=== PATIENT | male | born 1945 | race Caucasian/White ===

== ENCOUNTER 2019-06-02 09:02 | Inpatient (IN) | payer MEDICARE ==
[2019-05-25 10:24] LABS: BASOPHILS % (AUTO) 0.2 % (0-1); LYMPHOCYTES # (AUTO) 0.7 X10'3 (1.1-4.8); LYMPHOCYTES % (AUTO) 27.1 % (21-51); MEAN CORPUSCULAR HEMOGLOBIN 29.3 PG (27.0-31.0); MEAN CORPUSCULAR HGB CONC 33.7 g/dL (33.0-36.5); MEAN PLATELET VOLUME 8.1 FL (7.4-10.4); MONOCYTES # (AUTO) 0.5 X10'3 (0-0.9); NEUTROPHILS # (AUTO) 1.4 X10'3 (1.8-7.7); NEUTROPHILS % (AUTO) 52.7 % (42-75); PRE OP HEMATOCRIT 39.3 % (42.0-52.0); PRE OP HEMOGLOBIN 13.2 g/dL (14.0-17.9); PRE OP PLATELET COUNT 158 X10'3 (140-440); RED BLOOD COUNT 4.52 X10'6 (4.70-6.10); RED CELL DISTRIBUTION WIDTH 13.9 % (11.5-14.5)
[2019-05-25 10:31] LABS: ALBUMIN 4.2 G/DL (3.4-5.0); ALBUMIN/GLOBULIN RATIO 1.2 (1.1-1.5); ALKALINE PHOSPHATASE 58 IU/L (46-116); BLOOD UREA NITROGEN 11 MG/DL (7-18); BUN/CREATININE RATIO 12.9 (5.4-32.0); CALCIUM 8.9 MG/DL (8.5-10.1); CHLORIDE 106 MMOL/L (99-107); CREATININE 0.85 MG/DL (0.60-1.10); PRE OP ALT 53 U/L (30-65); PRE OP ANION GAP 6 (8-16); PRE OP AST 35 U/L (10-37); PRE OP BILIRUB, TOTAL 0.6 MG/DL (0.0-1.0); PRE OP GLUCOSE 105 MG/DL (70-104); PRE OP POTASSIUM 4.4 MMOL/L (3.4-5.1); PRE OP SODIUM 140 MMOL/L (135-145); TOTAL CARBON DIOXIDE 27.7 MMOL/L (24-32); TOTAL PROTEIN 7.6 G/DL (6.4-8.2); eGFR 88 ML/MIN
[2019-05-25 11:40] LABS: TOTAL CELLS COUNTED 100
[2019-05-25 11:41] LABS: PLATELET ESTIMATE NORMAL
[~2019-06-02] VITALS: Ht 180.3 cm; Wt 85.3 kg
[2019-06-02] VITALS (16 sets, daily range): BP systolic 90–131; BP diastolic 47–87
[~2019-06-02 09:02] MED LIST: AMLO5TAB16 PO; LOSA25TA41 PO; TRAM50TA2 PO
[2019-06-02] MEDS ORDERED: VANCOMYCIN INJ 1000 MG in NORMAL SALINE 250ml IV.SOLN IV ONE (10:00)
[2019-06-02] MEDS ORDERED: ringers solution, lacted 1,000 ML IV SCH ×2 (10:00→16:15)
[2019-06-02] MEDS ORDERED: cefazolin/dext.iso 2gm/100 ML IV ONE (10:00)
[2019-06-02] MEDS ORDERED: tranexamic acid inj. 850 MG in normal saline 100ml IV soln 100 ML IV ONE ×3 (10:00→20:45)
[2019-06-02] MEDS ORDERED: famotidine 20mg tablet PO ONE (10:00)
[2019-06-02] MEDS ORDERED: fentaNYL/PF 50MCG/1 ML 2ML syringe ONE (14:30)
[2019-06-02] MEDS ORDERED: midazolam 2 mg/2 ml injection ONE (14:31)
[2019-06-02] MEDS ORDERED: ROPIVAcaine 0.5% (5mg/ml) 30ml vial ONE ×2 (14:33→14:48)
[2019-06-02] MEDS ORDERED: dexamethasone sod phosphate 4mg/ml inj. ONE (14:33)
[2019-06-02] MEDS ORDERED: ondansetron/PF 4mg/2ml inj ONE (14:34)
[2019-06-02] MEDS ORDERED: ketorolac trometh. 30mg/ml inj. ONE (14:48)
[2019-06-02] MEDS ORDERED: ePHEDrine 50MG/ML INJ. ONE (15:25)
[2019-06-02] MEDS ORDERED: sevoflurane 250ml liquid IH ONE (15:25)
[2019-06-02] MEDS ORDERED: propofol 10mg/ml 20ml vial IV ONE (15:25)
[2019-06-02] MEDS ORDERED: fentaNYL/PF 50MCG/1 ML 2ML syringe IV PRN ×2 (16:15)
[2019-06-02] MEDS ORDERED: hydrALAZINE 20mg/ml inj. IV PRN (16:15)
[2019-06-02] MEDS ORDERED: morphine 4 MG/ML inj SYRINge IV PRN ×2 (16:15)
[2019-06-02] MEDS ORDERED: ondansetron/PF 4mg/2ml inj IV PRN ×2 (16:15→17:45)
[2019-06-02] MEDS ORDERED: ROPIVAcaine 0.2%/PF PAIN PUMP 400 ML IJ SCH (16:15)
[2019-06-02] MEDS ORDERED: enalaprilat dihydrate 2.5mg/2ml vial IV PRN (16:15)
[2019-06-02] MEDS ORDERED: acetaminophen 1,000mg/100ml IV 100 ML IV ONE (17:20)
[2019-06-02] MEDS ORDERED: meperidine/PF 50mg/ml syringe ONE (17:42)
[2019-06-02] MEDS ORDERED: HYDROmorphone 1 mg/ml syringe IV PRN (17:45)
[2019-06-02] MEDS ORDERED: magnesium hydroxide 30ml (MOM) UD suspension PO PRN (17:45)
[2019-06-02] MEDS ORDERED: diphenhydrAMINE 25mg capsule PO PRN ×2 (17:45)
[2019-06-02] MEDS ORDERED: bisacodyl 10mg suppository rectal RC PRN (17:45)
[2019-06-02] MEDS ORDERED: oxyCODONE IR 5mg (immed. release) tablet PO PRN ×2 (17:45)
[2019-06-02] MEDS ORDERED: HYDROmorphone inj. 0.5 MG/0.5 ML DISP.SYRIN IV PRN (17:45)
[2019-06-02] MEDS ORDERED: acetaminophen 325mg tablet PO PRN (17:45)
--- NOTE | 2019-06-02 17:55 | NUR ---
Received from OR via BED, accompanied by Anesthesiologist DR ACUNA and report given by Anesthesiologist. PT DROWSY, NO S/S OF DISTRESS/DISCOMFORT, LEFT SHOULDER W/ISLAND DRSG CDI, ICE PACK, SHOULDER WRAP, FINGERS PWD. Addendum: 06/02/19 at 1811 by Geneva Le RN Amended: Links added.
--- NOTE | 2019-06-02 19:05 | NUR ---
Report called to receiving nurse. Transferred via BED, 1 BAG OF PT Belongings SENT W/PT TO ROOM 401, RECEIVING RN AT BEDSIDE, PTS AT BEDSIDE. Special Issues communicated to receiving nurse.YES. Addendum: 06/02/19 at 1925 by Geneva Le RN Amended: Links added.
[2019-06-02] MEDS: acetaminophen 325mg tablet PO SCH (19:55)
[2019-06-02] MEDS: potassium cl 20mEq in 1/2 NS 1,000 ML IV SCH (19:56)
[2019-06-02] MEDS ORDERED: vancomycin/NS 1 GM ADD-VANTAGE 250 ML IV SCH (20:00)
[2019-06-02] MEDS ORDERED: sennosides 8.6mg tablet PO SCH (21:00)
[2019-06-02] MEDS: ceFAZolin 1GM/D5W- ADD-VANTAGE 50 ML IV SCH (23:18)
[2019-06-03 02:00] VITALS: BP_SYST 107; BP_SYST 118; BP_DIAS 55; BP_DIAS 72
[2019-06-03] MEDS: acetaminophen 325mg tablet PO SCH ×2 (02:07→07:35)
[2019-06-03 06:00] VITALS: BP 97/48
[2019-06-03 06:06] LABS: BASOPHILS % (AUTO) 0.2 % (0-1); EOSINOPHILS % (AUTO) 0.1 % (0-6); HEMATOCRIT 35.2 % (42.0-52.0); LYMPHOCYTES # (AUTO) 0.5 X10'3 (1.1-4.8); LYMPHOCYTES % (AUTO) 6.6 % (21-51); MEAN CORPUSCULAR HEMOGLOBIN 29.7 PG (27.0-31.0); MEAN CORPUSCULAR HGB CONC 34.1 g/dL (33.0-36.5); MEAN CORPUSCULAR VOLUME 87.1 FL (78-98); MEAN PLATELET VOLUME 8.5 FL (7.4-10.4); MONOCYTES # (AUTO) 0.4 X10'3 (0-0.9); MONOCYTES % (AUTO) 5.9 % (2-12); NEUTROPHILS # (AUTO) 6.2 X10'3 (1.8-7.7); NEUTROPHILS % (AUTO) 87.2 % (42-75); PLATELET COUNT 91 X10'3 (140-440); RED BLOOD COUNT 4.04 X10'6 (4.70-6.10); RED CELL DISTRIBUTION WIDTH 13.7 % (11.5-14.5); WHITE BLOOD COUNT 7.1 X10'3 (4.5-11.0)
--- NOTE | 2019-06-03 06:14 | NUR ---
received report from shaylee child
[2019-06-03 06:16] LABS: ANION GAP 8 (8-16); CHLORIDE 107 MMOL/L (99-107); POTASSIUM 4.8 MMOL/L (3.5-5.1); SODIUM 138 MMOL/L (135-145); TOTAL CARBON DIOXIDE 23.4 MMOL/L (24-32)
--- NOTE | 2019-06-03 06:26 | NUR ---
Problems reprioritized. Patient report given, questions answered & plan of care reviewed with Nathaly OTMPKINS.
[2019-06-03] MEDS: potassium cl 20mEq in 1/2 NS 1,000 ML IV SCH (06:53)
[2019-06-03] MEDS: ceFAZolin 1GM/D5W- ADD-VANTAGE 50 ML IV SCH (07:37)
[2019-06-03] MEDS ORDERED: aspirin 325mg tablet PO SCH (08:30)
--- NOTE | 2019-06-03 09:54 | NUR ---
Pt DC with instructions, understanding of instructions, and with all belongings accompanied by fam member walking to private vehicle to go home and f/u w/surgeon
[2019-06-04] MEDS ORDERED: acetaminophen 325mg tablet PO PRN (17:45)
== END 2019-06-03 10:00 | disposition home or self-care (01) | DRG 483 ==
LOC: PAS IN 09:02 → EDSTATUS 10:00 → ORTHO 4S 19:10
PROVIDERS: ADMIT Orthopaedic Surgery; ATTEND Orthopaedic Surgery
PROC: 3E0T3BZ Introduction of Anesthetic Agent into Peripheral Nerves and Plexi, Percutaneous Approach (ICD-10-PCS; 2019-06-02)
PROC: 0RRK0JZ Replacement of Left Shoulder Joint with Synthetic Substitute, Open Approach (ICD-10-PCS; principal; 2019-06-02 15:25)
DX: M19.012 Primary osteoarthritis, left shoulder (principal); D62 Acute posthemorrhagic anemia; I10 Essential (primary) hypertension; Z79.899 Other long term (current) drug therapy
CPT/HCPCS: 36415; 80051; 80053; 82948; 85025; 87081; 97161; 97530; A4215; A4565; A4618; A7000; C1713; C1776; G0378; J0131; J0690; J1100; J1885; J2175; J2250; J2405; J2704; J2795; J3010; J3370; J3480; J7120